=== PATIENT | male | born 1965 | race African-American/Black ===

== ENCOUNTER 2019-03-01 07:46 | Emergency (ER) | payer MEDICAID ==
[~2019-03-01] VITALS: Ht 177.8 cm; Wt 90.3 kg
--- NOTE | 2019-03-01 09:01 | NUR ---
PT WITH C/O LBP WORESENING WHEN LAYING FLAT, HAS GOTTON WORSE PAST TWO WEEKS. PT DENIES NUMBNESS/TINGLING IN LE, ABLE TO WALK. PT STATES HE WAS PREVIOUSLY RECIEVING STEROID SHOTS FOR THE PAIN, HE THINKS HE MAY NEED THIS AGAIN. PT TO BP, CONT PULSE OX
[2019-03-01 09:02] VITALS: BP 146/86
[2019-03-01] MEDS ORDERED: KETOROLAC 30 MG/1 ML ONE (09:26)
[2019-03-01] MEDS ORDERED: OXYcodone/APAP 5/325MG TABLET ONE (09:26)
[2019-03-01] MEDS ORDERED: DIAZEPAM 5 MG TABLET ONE (09:27)
[2019-03-01] MEDS ORDERED: KETOROLAC 30 MG/1 ML IM ONE (09:30)
[2019-03-01] MEDS ORDERED: OXYcodone/APAP 5/325MG TABLET PO ONE (09:30)
[2019-03-01] MEDS ORDERED: DIAZEPAM 5 MG TABLET PO ONE (09:30)
--- NOTE | 2019-03-01 09:32 | NUR ---
PT MEDICATED PER MAR, PT TO IMAGING AT THIS TIME
--- NOTE | 2019-03-01 11:10 | NUR ---
Patient/Caregiver given discharge instructions and they have confirmed that they understand the instructions. Patient ambulatory with steady gait. PT PROVIDED WITH [facility] [employer], [facility] INFORMATION
== END 2019-03-01 11:23 ==
LOC: ED 11:11
DX: S39.012A Strain of muscle, fascia and tendon of lower back, initial encounter (principal); G89.29 Other chronic pain; I10 Essential (primary) hypertension; M51.37 Other intervertebral disc degeneration, lumbosacral region; X58.XXXA Exposure to other specified factors, initial encounter; Y93.89 Activity, other specified; Y92.89 Other specified places as the place of occurrence of the external cause; Y99.8 Other external cause status
CPT/HCPCS: 72110; 96372; 99283; J1885